=== PATIENT | female | born 1975 | race Caucasian/White ===

== ENCOUNTER 2017-06-27 19:10 | Emergency (ER) | payer BC ==
[2017-06-27 19:21] VITALS: BP 113/73
--- NOTE | 2017-06-27 20:18 | ED Physician Documentation ---
PD HPI UPPER EXT INJURY - Stated complaint Stated Complaint: SHOULDER PX - Chief complaint Chief Complaint: Ext Problem - History obtained from History obtained from: Patient - History of Present Illness Location: Left, Shoulder Where injury occurred: Home Timing - onset: Today Timing - details: Abrupt onset Improved by: Immobilization Worsened by: Palpating Associated symptoms: No: Tingling, Swelling, Discolored Contributing factors: No: Prior ortho surgery Similar symptoms before: No diagnosis Recently seen: Not recently seen - Additonal information Additional information: Patient is a 42 year old female with a history of prior shoulder pain, who is presenting to the emergency department for worsening shoulder pain. Patient states that she was sitting on the ground and she pushed herself up causing a sharp pain in her shoulder. Patient states that she has a 20lb child at home and is having a hard time lifting him, or putting in the high chair. Patient states that she wants to know what is going on. patient denied any other trauma at this time. Review of Systems Constitutional: denies: Fever, Chills Eyes: reports: Reviewed and negative Ears: reports: Reviewed and negative Nose: reports: Reviewed and negative Throat: reports: Reviewed and negative Cardiac: denies: Chest pain / pressure, Palpitations Respiratory: denies: Dyspnea, Cough, Wheezing GI: reports: Reviewed and negative : reports: Reviewed and negative PD PAST MEDICAL HISTORY - Past Medical History Past Medical History: No - Past Surgical History Past Surgical History: Yes /PE[employer]FT [employer]GER: section - Present Medications Home Medications: Ambulatory Orders Medication Instructions Recorded Confirmed Capsaicin/Me-Salicylate/Menth 1 applic TP TID PRN #120 gm 06/27/17 [Vitacin Cream] - Allergies Allergies/Adverse Reactions: Allergies Allergy/AdvReac Type Severity Reaction Status Date / Time cefazolin Allergy Anaphylaxis Verified 06/27/17 19:33 oxycodone Allergy Rash Verified 06/27/17 19:33 - Social History Does the pt smoke?: No Smoking Status: Never smoker Does the pt drink ETOH?: No Does the pt have substance abuse?: No - Immunizations Immunizations are current?: Yes PD ED PE NORMAL - General General: Alert and oriented X 3, No acute distress - HEENT HEENT: Atraumatic, PERRL, Pharynx benign - Neck Neck: Supple, no meningeal sign, No JVD - Cardiac Cardiac: RRR, No murmur - Respiratory Respiratory: No respiratory distress, Clear bilaterally - Abdomen Abdomen: Soft, Non tender, Non distended - Derm Derm: Normal color, Warm and dry, No rash - Neuro Neuro: Alert and oriented X 3, 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, No motor deficit, No sensory deficit, Normal speech Eye Opening: Spontaneous Motor: Obeys Commands Verbal: Oriented GCS Score: 15 - Psych Psych: Normal mood PD ED PE EXPANDED - Extremities Extremities: Left shoulder (mild tenderness to palpation, full passive rom ) Results - Vitals Vitals: Vital Signs - 24 hr 06/27/17 19:15 Temperature 98.1 C H Heart Rate 63 Respiratory 18 Rate Blood Pressure 113/73 O2 Saturation 100 Oxygen O2 Source Room air - Rads (name of study) shoulder Radiology: Final report received (no acute abnormality) PD MEDICAL DECISION MAKING - ED course Complexity details: reviewed old records, reviewed results, re-evaluated patient , considered differential, d/w patient ED course: Patient was seen and examined at bedside. patient was well appearing and in no distress. patient was sent for imaging. When patient returned the results were reviewed. there were no acute abnormalities. A lengthy discussion was had with the patient concerning appropriate follow up. patient required no further work up and was stable for discharge with outpatient follow up. Departure - Departure Disposition: 01 Home, Self Care Clinical Impression: Rotator cuff impingement syndrome of left shoulder Condition: Good Instructions: Rotator Cuff Injury Follow-Up: Rudolph Rivera MD [Provider Admit Priv/Credential] - Within 3 Days Prescriptions: Capsaicin/Me-Salicylate/Menth [Vitacin Cream] 1 applic TP TID PRN #120 gm PRN Reason: Pain Comments: Your x-ray today was within normal limits, but it does not rule out ligament/ tendon damage. You will need to follow up with your doctor or Dr. Chou to schedule a follow up and possible mri if indicated. You should continue with nsaids, ice, heat and physical therapy in the meantime. You may return to the emergency department at any time for new, worsening or uncontrollable symptoms. Discharge Date/Time: 06/27/17 20:55
--- NOTE | 2017-06-27 20:24 | XRAY Preliminary Report ---
Exam: XR SHOULDER 3 VIEW LT IMPRESSION: Normal shoulder radiography. [facility] SITE ID: [id number]
--- NOTE | 2017-06-27 20:27 | XRAY Report ---
EXAM: LEFT SHOULDER RADIOGRAPHY EXAM DATE: 06/27/2017 08:11 PM. CLINICAL HISTORY: Left shoulder pain COMPARISON: None. TECHNIQUE: 3 views. FINDINGS: Bones: Normal. No fracture or bone lesion. The acromion is type II. Joints: The glenohumeral and acromioclavicular joints are normal. Soft tissues: The visualized hemithorax is unremarkable. No soft tissue swelling. IMPRESSION: Normal shoulder radiography. [facility] Referring Provider Line: [phone] SITE ID: [id number]
== END 2017-06-27 20:55 | disposition home or self-care (01) ==
LOC: ED 19:10
DX: M75.102 Unspecified rotator cuff tear or rupture of left shoulder, not specified as traumatic (principal)
CPT/HCPCS: 99282; 99283

== ENCOUNTER 2023-11-03 08:00 | Outpatient (CLI) | payer BC, OTHER ==
--- NOTE | 2023-11-03 15:16 | XRAY Report ---
PROCEDURE: Chest 2V INDICATIONS: BRONCHITIS, ACUTE WITH BRONCHOSPASM TECHNIQUE: 2 views of the chest were acquired. COMPARISON: None. FINDINGS: Surgical changes and devices: None. Lungs and pleura: Right infrahilar opacity. Mild bilateral perihilar bronchial wall thickening. Trac e bilateral pleural effusion or pleural tethering. Lungs are otherwise clear. Mediastinum: Mediastinal contours appear normal. Heart size is normal. Bones and chest wall: No suspicious bony lesions. Overlying soft tissues appear unremarkable. IMPRESSION: Right infrahilar opacity may be atelectasis or infection, potentially postobstructive. Mild perihilar bronchial wall thickening consistent with history of bronchitis. Reviewed by: Shanna Bethea MD on 11/03/2023 3:15 PM PDT Approved by: Shanna Bethea MD on 11/03/2023 3:15 PM PDT Station ID: [id number]
== END 2023-11-03 23:59 | disposition home or self-care (01) ==
LOC: DI.S 08:00
PROVIDERS: ATTEND Emergency Medicine
DX: J20.9 Acute bronchitis, unspecified (principal); R91.8 Other nonspecific abnormal finding of lung field